=== PATIENT | male | born 1990 | race Caucasian/White ===

== ENCOUNTER 2017-02-09 07:58 | Emergency (ER) | payer OTHER ==
[2017-02-09 08:05] VITALS: BP 147/41
--- NOTE | 2017-02-09 08:28 | UC ---
Dental HPI - HPI Summary HPI Summary: 26 yo male with "bad tooth " x mos now with abscess x 1-2 days no fever no n/v no hx DM or ht murmur - History of Current Complaint Chief Complaint: UCDentalProblem Stated Complaint: TOOTH ABSCESS Time Seen by Provider: 02/09/17 08:12 Hx Obtained From: Patient Onset/Duration: Sudden Onset Severity: Mild Pain Intensity: 2 Pain Scale Used: 0-10 Numeric Aggravating Factor(s): Heat, Cold, Chewing Related History: Previous Dental Care on Same Tooth, Swelling - Allergies/Home Medications Allergies/Adverse Reactions: Allergies Allergy/AdvReac Type Severity Reaction Status Date / Time No Known Allergies Allergy Verified 02/09/17 08:05 Home Medications: Home Medications Acetaminophen [Eq Acetaminophen] 2 tab PO Q4HR PRN 02/09/17 [History Confirmed 02/09/17] Ibuprofen [Ibuprofen 200] 400 mg PO Q8HR PRN 02/09/17 [History Confirmed ] Multiple Vitamins W/ Minerals [Multivitamin] 1 tab PO DAILY 02/09/17 [History Confirmed 02/09/17] PMH/Surg Hx/FS Hx/Imm Hx Previously Healthy: Yes - Surgical History Surgical History: None - Family History Known Family History: Positive: Hypertension - Social History Alcohol Use: Daily Alcohol Amount: 2-3 beer daily Substance Use Type: None Smoking Status (MU): Heavy Every Day Tobacco Smoker Type: Cigarettes Amount Used/How Often: 1ppd Household Exposure Type: Cigarettes - Immunization History Most Recent Influenza Vaccination: Not UTD Review of Systems Constitutional: Negative Skin: Negative Eyes: Negative ENT: Dental Pain Respiratory: Negative Cardiovascular: Negative Gastrointestinal: Negative Genitourinary: Negative Motor: Negative Neurovascular: Negative Musculoskeletal: Negative Neurological: Negative Psychological: Negative Is Patient Immunocompromised?: No All Other Systems Reviewed And Are Negative: Yes Physical Exam Triage Information Reviewed: Yes Appearance: Well-Appearing, No Pain Distress, Well-Nourished Vital Signs: Initial Vital Signs Temp 97.3 F 02/09/17 08:00 Pulse 79 02/09/17 08:00 Resp 18 02/09/17 08:00 BP 147/41 02/09/17 08:00 Pulse Ox 100 02/09/17 08:00 Vital Signs Reviewed: Yes Eyes: Positive: Conjunctiva Clear ENT: Positive: Hearing grossly normal, Dental tenderness. Negative: Nasal congestion, Nasal drainage, TMs normal, Sinus tenderness, Uvula midline Dental: Positive: Abscess @ Neck: Positive: Supple Respiratory: Positive: Lungs clear, Normal breath sounds, No respiratory distress Cardiovascular: Positive: RRR, No Murmur Bowel Sounds: Positive: Present Musculoskeletal: Positive: ROM Intact, No Edema Psychological Exam: Normal Skin Exam: Normal Dental Complaint Course/Dx - Differential Dx/Diagnosis Provider Diagnoses: Dental abscess Discharge - Discharge Plan Condition: Stable Disposition: HOME Prescriptions: Penicillin VK 500 MG TAB(NF) [Penicillin VK 500 mg Tab] 500 mg PO QID #28 tab Patient Education Materials: Dental Abscess (ED) Referrals: No Primary Care Phys,NOPCP [Primary Care Provider] - Additional Instructions: you have a number of teeth that should be addressed by a dentist recheck for worsening symptoms or if not improved in 48 hours Images Dental: 1 - abscess
== END 2017-02-09 08:29 | disposition home or self-care (01) ==
LOC: UCEAST 07:58
DX: K04.7 Periapical abscess without sinus (principal); F17.210 Nicotine dependence, cigarettes, uncomplicated
CPT/HCPCS: 99202; G0463